=== PATIENT | female | born 1930 | race Asian ===

== ENCOUNTER 2021-04-02 10:02 | Inpatient (IN) | payer MEDICARE, OTHER ==
[~2021-04-02] VITALS: Ht 152.4 cm; Wt 49.9 kg
[2021-04-02] MEDS ORDERED: ESOM40CA PO (10:53)
[2021-04-02] MEDS ORDERED: IRBE150T28 PO (10:53)
[2021-04-02] MEDS ORDERED: MONT10TA22 PO (10:53)
[2021-04-02] MEDS ORDERED: IBUP-1953 PO (10:53)
[2021-04-02] MEDS ORDERED: MECL-159 PO (10:53)
[2021-04-02] MEDS ORDERED: FOLI0.4T6 PO (10:53)
[2021-04-02] MEDS ORDERED: LABE200T5 PO (10:53)
[2021-04-02] MEDS ORDERED: TRAM50TA2 PO (10:53)
[2021-04-02] MEDS ORDERED: NITR0.4T48 SL (10:53)
[2021-04-02] MEDS ORDERED: GABA-532 PO (10:53)
[2021-04-02] MEDS ORDERED: AMLO-213 PO (10:53)
[2021-04-02] MEDS ORDERED: LORA2TAB95 PO (10:54)
[2021-04-02] MEDS ORDERED: MAG HYDROX/AL HYDROX/SIMETH 30 ML UDC PO PRN (11:00)
[2021-04-02] MEDS ORDERED: ZOLPIDEM TARTRATE 5 MG TABLET PO PRN (11:00)
[2021-04-02] MEDS ORDERED: BLOOD SUGAR DIAGNOSTIC 1 EACH STRIP IN ONE (11:00)
[2021-04-02] MEDS ORDERED: ACETAMINOPHEN 325 MG TABLET PO PRN (11:00)
[2021-04-02] MEDS ORDERED: MAGNESIUM HYDROXIDE 30 ML UDC PO PRN (11:00)
--- NOTE | 2021-04-02 11:09 | NUR ---
RN-CO: PT REQUESTED FOR SNACKS AND CURRENTLY EATING. BLOOD SUGAR IN N/A.
[2021-04-02] MEDS ORDERED: Z GUARD REMEDY 4 OZ OINT TP PRN (12:30)
--- NOTE | 2021-04-02 12:30 | NUR ---
DR WEAVER CALLED AND INFORMED OF PATIENT'S HGB 7.6, HCT 22.4, BUN 56, CREATININE 2.8. THESE LAB RESULTS CAME WITH PATIENT FROM [facility]. DR WEAVER ORDERED A CBC AND CMP STAT. AWAITING RESULTS. PT RESTING WELL CALM AND COOPERATIVE. ATE LUNCH. NO ACUTE DISTRESS NOTED AT THIS TIME. WILL CONTINUE TO MONITOR.
--- NOTE | 2021-04-02 12:45 | NUR ---
FARZAD Initial Discharge Note: Patient currently resides at home located at [address] [place] [address]; ([phone]). Patient will return back home upon dc. Patient's daughter Janny ([phone]) is involved in patient's care. FARZAD will work with the MD, treatment team, and family to help coordinate appropriate discharge.
--- NOTE | 2021-04-02 12:45 | NUR ---
SW Admit Source: Patient currently resides at home located at [address] [place] [address]; ([phone]). Patient will return back home upon dc. Patient's daughter Janny ([phone]) is involved in patient's care. Patient was placed on a 5150 hold for danger to self due to overdosing on 10 tablets of Ativan.
--- NOTE | 2021-04-02 12:46 | NUR ---
FARZAD Family Contact: SW spoke with patient's daughter Janny ([phone]) and discussed treatment and discharge plan. Daughter expressed that patient did not take the tablets to end her life. She expressed she has been having back pain since January 2021 and has a fracture. She reported she took the medications to stop the pain. She stated that she has been having severe pain (back and right foot). Daughter shared that pt receives blood transfusion and last she received was in Mar 14, 2021 and has an appointment on 04/03/2021 for another transfusion.
[2021-04-02 12:55] LABS: BASOPHILS % (AUTO) 0.5 % (0.0-2.0); HEMATOCRIT 22 % (39-51); HEMOGLOBIN 7.3 g/dL (13.5-17.5); LYMPHOCYTES # (AUTO) 0.8 K/uL (0.8-4.8); LYMPHOCYTES % (AUTO) 13.9 % (20.0-44.0); MEAN CORPUSCULAR HGB CONC 34 g/dl (31.0-36.0); MEAN CORPUSCULAR VOLUME 90 fL (80-96); MONOCYTES # (AUTO) 0.5 K/uL (0.1-1.30); MONOCYTES % (AUTO) 9.2 % (2.0-12.0); NEUTROPHILS # (AUTO) 4.2 K/uL (1.8-8.9); NEUTROPHILS % (AUTO) 74.4 % (43.0-81.0); PLATELET COUNT (AUTO) 140 K/uL (150-450); WHITE BLOOD COUNT (AUTO) 5.6 K/uL (4.3-11.0)
--- NOTE | 2021-04-02 13:23 | NUR ---
RECEIVED PATIENT FROM [facility]. ARRIVAL TIME 1045 VIA AMBULANCE/GURNEY. PATIENT ADMITTED ON A 5150 HOLD FOR DANGER TO SELF, SUICIDE ATTEMPT. PER HOLD: PATIENT ATTEMPTED TO END HER LIFE BY OVERDOSING ON 10 TABLETS OF ATIVAN. UPON ARRIVAL TO THE UNIT, PATIENT IS ALERT AND ORIENTED X 3,CALM AND COOPERATIVE, MOSTLY MANDARIN SPEAKING, HOWEVER FOLLOWS COMMANDS IN UZBEK. PATIENT DENIES SUICIDAL AND HOMICIDAL IDEATION AT THIS TIME. PATIENT PATIENT'S RESPIRATIONS APPEARED EVEN AND UNLABORED WITH NO SOB NOTED. SKIN ASSESSMENT COMPLETED, SHOWING DISCOLORATION ON LEFT ARM, REDNESS ON SACRAL AREA AND DISCOLORATION ON RIGHT HIP, PHOTOS WERE TAKEN OF. VITAL SIGNS 137/58, 97.9, 16, 79, 96% ON R/A. BLOOD SUGAR 147. FACE OF PHOTO WELL SKIN ASSESSMENT. MEDICAL HX OF ANEMIA, HTN, ULCER, HEART SURGERY 15 YEARS AGO, HISTERECTOMY 1981 COVID VACCINE FIRST AND SECOND SHOT GIVEN, FLU VACCINE GIVEN. MSRA SWAB DONE. PATIENT EDUCATED FIBER PRODUCT CUTTING MACHINE OPERATOR LIGHT. SIDE RAILS UP X2 FOR SAFETY. BED LOCKED, LOW, WILL CONTINUE TO MONITOR Q15 MINUTES FOR SAFETY. ALL BELONGINGS STORED IN PT'S LOCKER AND DOCUMENTED.
[2021-04-02 13:28] LABS: ALANINE AMINOTRANSFERASE 22 U/L (12-78); ALKALINE PHOSPHATASE 73 U/L (46-116); ASPARTATE AMINOTRANSFERASE 17 U/L (15-37); BILIRUBIN,TOTAL 0.3 mg/dL (0.2-1.0); CALCIUM, SERUM 8.6 mg/dL (8.5-10.1); CARBON DIOXIDE 22 mmol/L (21-32); CHLORIDE 110 mmol/L (98-107); CREATININE 2.9 mg/dL (0.6-1.3); GLUCOSE 141 mg/dL (74-106); POTASSIUM 4.6 mmol/L (3.5-5.1); SODIUM SERUM 141 mmol/L (136-145); TOTAL PROTEIN, SERUM 6.2 g/dL (6.4-8.2); UREA NITROGEN, BLOOD 61 mg/dL (7-18)
--- NOTE | 2021-04-02 14:05 | NUR ---
RN-CO: LATEST LAB RESULTS WERE DISCUSSED TO DR KJ STONE AND MADE HIM AWARE THAT PT IS SCHEDULED FOR BT TOMORROW ACCORDING TO HER DAUGHTERS. DR TAVERAS MADE AWARE WELL.
--- NOTE | 2021-04-02 14:23 | NUR ---
RN-CO: PATIENT'S RIGHTS WAS DISCUSSED TO PT AND DAUGHTERS.( CASHIERS SUPERVISOR)S
--- NOTE | 2021-04-02 15:43 | NUR ---
PT DISCHARGED TO MED SURG. ROOM # [address] WEAVER AND DR TAVERAS. HOLD WILL CONTINUE. PT'S LABS SHOW HGB 7.3, HCT 22, BUN 61, CREATININE 2.9. REASON FOR TRANSFER IS DUE TO PT NEEDS A BLOOD TRANSFUSION AND FURTHER EVALUATION AND MONITORING. PT ALERT AND ORIENTED X3. CALM AND COOPERATIVE. NO ACUTE DISTRESS NOTED. PT DENIES SI/HI AT THIS TIME. VALUABLES, BELONGINGS IN SAFE AND PATIENT'S OWN MEDICATION RECEIPT TAG IN PHARMACY GIVEN TO NAHUM GOMEZ ALONG WITH REPORT. FAMILY IS AWARE. DR TAVERAS ORDERED TO CONTINUE HOLD AND DISCHARGE PATIENT TO MED SURG UNIT.
--- NOTE | 2021-04-02 15:53 | NUR ---
SW Transfer Note: Patient will transfer to medical floor due to chronic anemia. Dr. Barber will continue the hold. Patient will return back to home [address] [place] [address]; ([phone]). Patient has a caregiver at home (77 hrs provided). Patient lives with daughter Phyllis ([phone]) who takes care of pt. Patient's other daughter Janny ([phone]) involved in the care and speaks Cypriot.
[2021-04-02] MEDS ORDERED: Z GUARD REMEDY 4 OZ OINT TP SCH (21:00)
== END 2021-04-02 15:33 | disposition short-term general hospital (02) | DRG 812 ==
LOC: EDSEX → GPS 10:18
PROVIDERS: ADMIT Psychiatry & Neurology Psychiatry; ATTEND Internal Medicine
DX: D64.9 Anemia, unspecified (principal); F32.2 Major depressive disorder, single episode, severe without psychotic features
CPT/HCPCS: 36415; 80053-TC; 85025-TC; 87081-TC

== ENCOUNTER 2021-04-02 15:53 | Inpatient (IN) | payer MEDICARE, OTHER ==
[~2021-04-02] VITALS: Ht 152.4 cm; Wt 49.9 kg
[~2021-04-02 15:53] MED LIST: AMLO-213 PO; ESOM40CA PO; FOLI0.4T6 PO; GABA-532 PO; IBUP-1953 PO; IRBE150T28 PO; LABE200T5 PO; LORA2TAB95 PO; MECL-159 PO; MONT10TA22 PO; NITR0.4T48 SL; TRAM50TA2 PO
[2021-04-02 16:30] VITALS: BP 143/66
--- NOTE | 2021-04-02 16:30 | NUR ---
RN MS NOTES RECEIVED PT FROM [facility] STAFF VIA WHEELCHAIR, ASSISTED TO BED, MADE COMFORTABLE, PT IS AWAKE, ALERT, NO SIGN OF PAIN, NOT IN DISTRESS, ON ROOM AIR, ROOM SET UP ORIENTATION PROVIDED TO PT, VITAL SIGNS TAKEN AND RECORDED, DR. STONE NOTIFIED, AWAITING ADMITTING ORDERS.
[2021-04-02] MEDS ORDERED: IBUPROFEN 400 MG TABLET PO PRN (17:00)
[2021-04-02] MEDS ORDERED: MORPHINE SULFATE INJ 2 MG/ML DISP.SYRIN IV PRN (17:00)
[2021-04-02] MEDS ORDERED: ONDANSETRON HCL/PF 4 MG/2 ML VIAL IVP PRN (17:00)
[2021-04-02] MEDS ORDERED: NITROGLYCERIN 0.4 MG/TAB BOTTLE SL PRN (17:00)
[2021-04-02] MEDS ORDERED: MECLIZINE HCL 25 MG TABLET PO PRN (17:00)
[2021-04-02] MEDS ORDERED: ACETAMINOPHEN 325 MG TABLET PO PRN (17:00)
[2021-04-02] MEDS ORDERED: GABAPENTIN 100 MG CAPSULE PO PRN (17:00)
[2021-04-02] MEDS: LABETALOL HCL (100MG) 100 MG TABLET PO SCH (17:14)
[2021-04-02] MEDS: IV NS 0.9% 1,000 ML IV PRN (18:01)
--- NOTE | 2021-04-02 19:00 | NUR ---
RN MS NOTES PT IN BED, AWAKE, ALERT, ABLE TO MAKE NEEDS KNOWN, ABLE TO AMBULATE TO THE BATHROOM WITH A WALKER, ORDERS RECEIVED FROM DR. WEAVER, CONSENT FOR BLOOD TRANSFUSION SIGNED BY PT WITH DAUGHTER HUNTER ON THE PHONE TO EXPLAIN TO HER, IV FLUIDS INFUSING WELL, CALL LIGHT WITHIN REACH, SITTER AT BEDSIDE, ALL NEEDS ATTENDED.
--- NOTE | 2021-04-02 19:45 | NUR ---
RN OPENING NOTES RECEIVED PATIENT IN BED AWAKE, ALERT, ORIENTED X2-3, VERBALLY RESPONSIVE. ON ROOM AIR AND PT TOLERATED WELL. NO SOB NOTED. BREATHING EVEN AND UNLABORED. IV ACCES LFA#20G, INTACT AND PATENT. RUNNING NS@75CC/HR. NO S/S OF INFILTRATIONS. NO C/O PAIN OR DISCOMFORT. NO ACUTE DISTRESS. AMBULATORY WITH WALKER. SITTER AT BEDSIDE. ALL SAFETY PRECAUTIONS IN PLACE AT ALL TIMES. BED IN LOWEST POSITION AND LOCKED, HOB ELEVATED, SIDE RAILS UP X2, PLACE CALL LIGHT AND TABLE WITHIN REACH. WILL CONTINUE TO MONITOR
[2021-04-02 20:00] VITALS: BP 120/55
[2021-04-03 06:18] LABS: BASOPHILS % (AUTO) 0.5 % (0.0-2.0); EOSINOPHILS % (AUTO) 2.6 % (0.0-6.0); HEMATOCRIT 21 % (33-45); HEMOGLOBIN 7.3 g/dL (11.5-14.8); LYMPHOCYTES # (AUTO) 1.1 K/uL (0.8-4.8); LYMPHOCYTES % (AUTO) 16.6 % (20.0-44.0); MEAN CORPUSCULAR HGB CONC 34 g/dl (31.0-36.0); MEAN CORPUSCULAR VOLUME 90 fL (82-100); MONOCYTES # (AUTO) 0.6 K/uL (0.1-1.30); MONOCYTES % (AUTO) 9.9 % (2.0-12.0); NEUTROPHILS # (AUTO) 4.5 K/uL (1.8-8.9); NEUTROPHILS % (AUTO) 70.4 % (43.0-81.0); PLATELET COUNT (AUTO) 152 K/uL (150-450); RED BLOOD CELL COUNT(AUTO) 2.37 MIL/uL (4.0-5.2); WHITE BLOOD COUNT (AUTO) 6.4 K/uL (4.3-11.0)
--- NOTE | 2021-04-03 06:35 | NUR ---
RN CLOSING NOTES PATIENT IN BED AWAKE, ALERT, ORIENTED X2-3, VERBALLY RESPONSIVE. ON ROOM AIR, O2 SAT 97% AND PT TOLERATED WELL. NO SOB NOTED. BREATHING EVEN AND UNLABORED. IV ACCES LFA#20G, INTACT AND PATENT. RUNNING NS@75CC/HR. NO S/S OF INFILTRATIONS. NO C/O PAIN OR DISCOMFORT. NO ACUTE DISTRESS. AMBULATORY WITH WALKER. SITTER AT BEDSIDE. NO UNUSAL BEHAVIOR NOTED. ALL SAFETY PRECAUTIONS IN PLACE AT ALL TIMES. BED IN LOWEST POSITION AND LOCKED, HOB ELEVATED, SIDE RAILS UP X2, PLACE CALL LIGHT AND TABLE WITHIN REACH. WILL ENDORSE TO MORNING SHIFT NURSE.
[2021-04-03 07:15] LABS: ALANINE AMINOTRANSFERASE 22 U/L (12-78); ALBUMIN 2.9 g/dL (3.4-5.0); ALKALINE PHOSPHATASE 76 U/L (46-116); ASPARTATE AMINOTRANSFERASE 17 U/L (15-37); BILIRUBIN,TOTAL 0.3 mg/dL (0.2-1.0); CALCIUM, SERUM 8.6 mg/dL (8.5-10.1); CARBON DIOXIDE 17 mmol/L (21-32); CHLORIDE 112 mmol/L (98-107); CREATININE 2.8 mg/dL (0.6-1.3); GLUCOSE 109 mg/dL (74-106); MAGNESIUM 2.3 mg/dL (1.8-2.4); PHOSPHORUS 4.8 mg/dL (2.5-4.9); POTASSIUM 4.1 mmol/L (3.5-5.1); SODIUM SERUM 142 mmol/L (136-145); TOTAL PROTEIN, SERUM 5.9 g/dL (6.4-8.2); UREA NITROGEN, BLOOD 56 mg/dL (7-18)
[2021-04-03] MEDS ORDERED: PANTOPRAZOLE 40 MG TABLET.DR PO SCH (07:30)
--- NOTE | 2021-04-03 08:15 | NUR ---
MS RN OPENING NOTE Patient in bed, awake. A/O x 2-3. On room air, breathing evenly and unlabored. No SOB or s/s of distress noted. IV access on LFA #20G infusing NS at 75 cc/hr. Safety precautions in place: bed in low, locked position; siderails up x 2; call light within reach. Will continue to monitor.
--- NOTE | 2021-04-03 08:20 | NUR ---
SW Transfer Note: Patient will transfer to medical floor due to chronic anemia. Dr. Barber will continue the hold. Patient will return back to home [address] [place] [address]; ([phone]). Patient has a caregiver at home (77 hrs provided). Patient lives with daughter Phyllis ([phone]) who takes care of pt. Patient's other daughter Janny ([phone]) involved in the care and speaks Kuwaiti.
[2021-04-03] MEDS ORDERED: AMLODIPINE BESYLATE 10 MG TABLET PO SCH (09:00)
[2021-04-03] MEDS ORDERED: MONTELUKAST SODIUM (10MG) 10 MG TABLET PO SCH (09:00)
[2021-04-03] MEDS ORDERED: FOLIC ACID 1 MG TABLET PO SCH (09:00)
[2021-04-03] MEDS ORDERED: LOSARTAN POTASSIUM 50 MG TABLET PO SCH (09:00)
[2021-04-03] MEDS ORDERED: DULOXETINE HCL 30 MG CAPSULE.DR PO SCH (09:30)
[2021-04-03] MEDS: LABETALOL HCL (100MG) 100 MG TABLET PO SCH ×2 (09:40→18:31)
[2021-04-03] MEDS: GABAPENTIN 100 MG CAPSULE PO SCH ×3 (09:42→18:31)
[2021-04-03] MEDS: IV NS 0.9% 1,000 ML IV PRN (11:38)
[2021-04-03] MEDS: ENSURE ENLIVE 237 ML LIQUID (VANILLA) PO SCH ×2 (12:03→18:30)
[2021-04-03 14:30] VITALS: BP 146/61
--- NOTE | 2021-04-03 14:46 | NUR ---
RN NOTE Started blood transfusion at 1446. Verified by 2 RNs. VS as follows: BP 146/61; HR 76; RR 18; Temp 98.5; SpO2 99%. No signs of hemolytic reactions was noted. will continue to monitor.
--- NOTE | 2021-04-03 14:53 | NUR ---
RN NOTE Dr. Oswald Jimenez ordered to transfuse 1 unit of PRBC. Blood transfusion consent signed by patient. Addendum: 04/03/21 at 1459 by RIGO SIDDIQUI RN CORRECTION: Time: 1400
[2021-04-03 15:01] VITALS: BP 134/58
--- NOTE | 2021-04-03 15:01 | NUR ---
RN NOTE Patient is undergoing blood transfusion of 1 unit PRBC at this time. No transfusion reactions noted. Will continue to monitor.
[2021-04-03 15:31] VITALS: BP 119/64
[2021-04-03 16:31] VITALS: BP 129/56
[2021-04-03 18:01] VITALS: BP 130/54
--- NOTE | 2021-04-03 18:01 | NUR ---
RN NOTE Blood transfusion ended, patient tolerated well. VS as follows: Temp 98.8; BP 130/54; HR 79; RR 18.
[2021-04-03 18:31] VITALS: BP 130/54
[2021-04-03 19:59] LABS: BASOPHILS % (AUTO) 0.5 % (0.0-2.0); HEMATOCRIT 27 % (33-45); LYMPHOCYTES # (AUTO) 1.4 K/uL (0.8-4.8); LYMPHOCYTES % (AUTO) 18.7 % (20.0-44.0); MEAN CORPUSCULAR HGB CONC 34 g/dl (31.0-36.0); MEAN CORPUSCULAR VOLUME 92 fL (82-100); MONOCYTES # (AUTO) 0.8 K/uL (0.1-1.30); MONOCYTES % (AUTO) 10.8 % (2.0-12.0); NEUTROPHILS # (AUTO) 5.2 K/uL (1.8-8.9); PLATELET COUNT (AUTO) 146 K/uL (150-450); RED BLOOD CELL COUNT(AUTO) 2.91 MIL/uL (4.0-5.2); WHITE BLOOD COUNT (AUTO) 7.7 K/uL (4.3-11.0)
--- NOTE | 2021-04-03 20:01 | NUR ---
DISCHARGE NOTE Received order to discharge patient after blood transfusion. Patient is A/O x 2-3, stable on room air. Report given to Norberto of [facility] for continuity of care. IV access removed. Patient transferred to [facility] via wheelchair. Exitcare folder and belongings given to JASON Thornton of [facility].
[2021-04-03 21:24] LABS: THYROID STIMULATING HORMONE 1.441 uIU/mL (0.358-3.74)
[2021-04-05 09:07] LABS: IMMUNOGLOBULIN A, SERUM 150 mg/dL (64-422); IMMUNOGLOBULIN G, SERUM 724 mg/dL (586-1602); IMMUNOGLOBULIN M, SERUM 45 mg/dL (26-217)
[2021-04-07 10:07] LABS: *SPE A/G RATIO 1.3 (0.7-1.7); *SPE ALPHA-1-GLOBULIN 0.3 g/dL (0.0-0.4); *SPE ALPHA-2-GLOBULIN 0.9 g/dL (0.4-1.0); *SPE BETA GLOBULIN 0.7 g/dL (0.7-1.3); *SPE M-SPIKE Not Observed g/dL (Not Observed)
== END 2021-04-03 19:50 | DRG 811 ==
LOC: EDSEX 15:53 → TELE 15:53 → MED 16:57
PROVIDERS: ADMIT Internal Medicine; ATTEND Internal Medicine
PROC: 30233N1 Transfusion of Nonautologous Red Blood Cells into Peripheral Vein, Percutaneous Approach (ICD-10-PCS; principal; 2021-04-03)
DX: D64.9 Anemia, unspecified (principal); N17.0 Acute kidney failure with tubular necrosis; F32.2 Major depressive disorder, single episode, severe without psychotic features; I12.9 Hypertensive chronic kidney disease with stage 1 through stage 4 chronic kidney disease, or unspecified chronic kidney disease; N18.9 Chronic kidney disease, unspecified; T42.4X2D Poisoning by benzodiazepines, intentional self-harm, subsequent encounter; M84.48XD Pathological fracture, other site, subsequent encounter for fracture with routine healing
CPT/HCPCS: 36415; 80053-TC; 82728-TC; 82784; 83540-TC; 83605-TC; 83735-TC; 84100-TC; 84155; 84165; 84443-TC; 85025-TC; 86334; 86850-TC; 87081-TC; G0378; J2270; J7030; J7040; J7050; P9016

== ENCOUNTER 2021-04-03 20:29 | Inpatient (IN) | payer MEDICARE, OTHER ==
[~2021-04-03] VITALS: Ht 152.4 cm; Wt 49.9 kg
[~2021-04-03 20:29] MED LIST changes: -LORA2TAB95 PO
--- NOTE | 2021-04-03 20:45 | NUR ---
[facility] TRANSCRIPT CLERK NOTES RECEIVED REPORT FROM JASON MONTANEZ [facility]ST. PATIENT ADMITTED ON A 5150 FOR DANGER TO SELF. PER HOLD, PATIENT ATTEMPTED TO END HER LIFE BY OVERDOSING ON 10 TABLETS OF ATIVAN. UPON FACE TO FACE EVALUATION, PATIENT IS A/OX2-3, MOSTLY MANDARIN SPEAKING. HOWEVER, FOLLOWS COMMANDS IN LITHUANIAN. APPEARS DEPRESSED, EASILY GETS IRRITABLE, GUARDED. VERBALIZATION OF FEELINGS ENCOURAGED. PATIENT REFUSED TO SIGN ALL ADMISSION PAPERWORK. SKIN ASSESSMENT DONE. BELONGINGS WERE INVENTORIED AND CHECKED FOR CONTRABAND. PATIENT IS UNDER THE PSYCHIATRIC CARE OF DR. TAVERAS AND MEDICAL CARE OF [facility]LE[facility] MORENO. BED IN LOW LOCKED POSITION. SAFETY PRECAUTIONS MAINTAINED. WILL CONTINUE TO MONITOR Q15 MINS FOR MOOD, SAFETY AND BEHAVIOR.
[2021-04-03 21:00] VITALS: BP 129/60
[2021-04-03] MEDS ORDERED: MAGNESIUM HYDROXIDE 30 ML UDC PO PRN (22:00)
[2021-04-03] MEDS ORDERED: LORAZEPAM 0.5 MG TABLET PO PRN (22:00)
[2021-04-03] MEDS ORDERED: MAG HYDROX/AL HYDROX/SIMETH 30 ML UDC PO PRN (22:00)
[2021-04-03] MEDS ORDERED: BLOOD SUGAR DIAGNOSTIC 1 EACH STRIP IN ONE (22:00)
[2021-04-03] MEDS: ZOLPIDEM TARTRATE 5 MG TABLET PO PRN (23:21)
--- NOTE | 2021-04-03 23:21 | NUR ---
[facility] RN NOTES: INSOMNIA PATIENT C/O INABILITY TO SLEEP. AMBIEN 5MG PO GIVEN PRN ORDER. WILL CONTINUE TO MONITOR.
[2021-04-03] MEDS ORDERED: NITROGLYCERIN 0.4 MG/TAB BOTTLE SL PRN (23:30)
[2021-04-03] MEDS ORDERED: MECLIZINE HCL 25 MG TABLET PO PRN (23:30)
[2021-04-03] MEDS ORDERED: GABAPENTIN 100 MG CAPSULE PO PRN (23:30)
--- NOTE | 2021-04-04 06:54 | NUR ---
[facility] RN NOTES PATIENT REFUSED AM LABS. WILL ENDORSE TO MORNING SHIFT NURSE FOR CONTINUITY OF CARE.
[2021-04-04 08:00] VITALS: BP 147/64
[2021-04-04] MEDS: FOLIC ACID 1 MG TABLET PO SCH (08:18)
--- NOTE | 2021-04-04 08:18 | NUR ---
Geriatric Psychosocial Attestation: Hien Berry DATA MANAGEMENT ASSOCIATE, ACSW attest to the accuracy of the psychosocial done on April 02, 2021. On the admission for December 31, 2021 the patient was admitted to [facility], she lives with her daughter Phyllis ([phone]) and located at [address] [place] [address]; ([phone]). Patients other daughter Janny ([phone]) speaks Cypriot and is involved in patients care. Daughter Janny reported that pt has a caregiver at home (77 hrs every month). During admission of April 02, 2021, pt appeared to be with low mood and depressed due to her medical conditions. Pt had denied suicidal ideation or homicidal ideation. Pt had denied visual/auditory hallucinations. She expressed back pain and body pain. Daughter Janny ([phone]) expressed that pt receives blood transfusion twice a month and her transfusion was due on April 03, 2021. Pt then was transferred to the medical floor on April 02, 2021 due to Chronic Anemia on a hold for 5150 (Dr. Barber continued the hold). Patient was readmitted to [facility] on April 03, 2021, she was transferred back from medical floor to [facility]. During this writers evaluation, pt continues to present with low mood and appears depressed. Pt denies suicidal or homicidal ideation. Upon discharge, pt will return back home at [address] [place], [place] [address]; ([phone]). Family will be notified of pt being back to [facility]. Addendum: 04/04/21 at 1015 by FARZAD LANZA Disregard attestation
[2021-04-04] MEDS: AMLODIPINE BESYLATE 10 MG TABLET PO SCH (08:19)
[2021-04-04] MEDS: PANTOPRAZOLE 40 MG TABLET.DR PO SCH (08:19)
[2021-04-04] MEDS: MONTELUKAST SODIUM (10MG) 10 MG TABLET PO SCH (08:19)
[2021-04-04] MEDS: ENSURE ENLIVE 237 ML LIQUID (VANILLA) PO SCH ×3 (08:35→17:09)
[2021-04-04] MEDS ORDERED: LOSARTAN POTASSIUM 50 MG TABLET PO SCH (09:00)
--- NOTE | 2021-04-04 10:15 | NUR ---
Psychosocial Attestation: I, Hien Robbinswillem TEMPER MILL ROLLER, ACSW attest to the contents of my psychosocial done on April 02, 2021. Patient was brought to [facility] on a 5150 hold for danger to herself on April 02, 2021 due to pt attempting to end her life by overdosing on 10 tablets of Ativan. Current situation today, April 04, 2021, is that patient was transferred back to [facility] on April 03, 2021. Patient went upstairs on the medical floor due to a need for blood transfusion. Patients presentation is depressed mood. She is alert and oriented x3. SW attempted to use [employer] #[id number] and pt was blankly staring and not responding. Patient understands somewhat Croatian. She denied suicidal or homicidal ideation. Pt denied visual/auditory hallucinations. SW spoke with pts daughter Janny ([phone]) and discussed treatment/discharge plan. Daughter shared that pt has been experiencing back pain due to a fracture. She expressed that pt has a caregiver at home (77 hrs every month). Patients discharge plan remains to return back home with daughter Phyllis ([phone]). Patient lives at [address] [place] [address]; ([phone]). Daughter Janny ([phone]) is also involved in patients care.
[2021-04-04] MEDS: DULOXETINE HCL 30 MG CAPSULE.DR PO SCH (10:51)
[2021-04-04 10:59] LABS: ALANINE AMINOTRANSFERASE 20 U/L (12-78); ALBUMIN 2.8 g/dL (3.4-5.0); ALKALINE PHOSPHATASE 68 U/L (46-116); ASPARTATE AMINOTRANSFERASE 16 U/L (15-37); BILIRUBIN,TOTAL 0.4 mg/dL (0.2-1.0); CALCIUM, SERUM 8.5 mg/dL (8.5-10.1); CARBON DIOXIDE 19 mmol/L (21-32); CHLORIDE 107 mmol/L (98-107); CREATININE 2.8 mg/dL (0.6-1.3); GLUCOSE 196 mg/dL (74-106); POTASSIUM 4.4 mmol/L (3.5-5.1); SODIUM SERUM 135 mmol/L (136-145); TOTAL PROTEIN, SERUM 5.7 g/dL (6.4-8.2); UREA NITROGEN, BLOOD 61 mg/dL (7-18)
--- NOTE | 2021-04-04 11:15 | NUR ---
FARZAD Family Contact: FARZAD spoke with patient's daughter Janny ([phone]) and notified that pt is back in [facility]. She was aware of this. SW discussed treatment plan and discharge plan. Pt will return back home upon dc.
[2021-04-04 11:31] LABS: CHOLESTEROL 102 mg/dL (<200); HDL CHOLESTEROL 36 mg/dL (40-60); LDL 47 mg/dL (0-99); TRIGLYCERIDES 76 mg/dL (30-150)
[2021-04-04] MEDS: GABAPENTIN 100 MG CAPSULE PO SCH ×2 (12:03→16:50)
[2021-04-04 16:00] VITALS: BP 133/72
[2021-04-04 20:10] VITALS: BP 132/56
--- NOTE | 2021-04-04 20:31 | NUR ---
[facility] RN NOTE: LAB URINE SAMPLE COLLECTED. CHARGE NURSE AWARE; LAB NOTIFIED
--- NOTE | 2021-04-04 21:02 | NUR ---
[facility] RN NOTE: LAB LAB PICKED UP URINE SPECIMEN, CHARGE NURSE AWARE; WILL AWAIT LAB RESULTS
[2021-04-04 21:35] LABS: BILIRUBIN,URINE NEGATIVE (NEGATIVE); COLOR,URINE YELLOW (YELLOW); LEUKOCYTE ESTERASE ,URINE NEGATIVE (NEGATIVE); NITRITE, URINE NEGATIVE (NEGATIVE); PROTEIN,URINE 100 mg/dl (NEGATIVE); UGLUCOSE 100 MG/DL mg/dL (NEGATIVE); UROBILINOGEN,URINE 0.2 EU/dL (0.2)
[2021-04-04 21:40] LABS: BACTERIA,URINE None seen /HPF (None Seen); SQUAMOUS EPITHELIAL CELL,UR 0-2 /HPF (None Seen); WBC,URINE 0-2 /HPF (0-3)
[2021-04-04 21:45] LABS: CREATININE, URINE 35.6 MG/DL (30.0-125.0); URINE TOTAL PROTEIN 94.7 mg/dL (0-11.9)
[2021-04-04 22:02] LABS: EOSINOPHIL,URINE RARE
[2021-04-05 06:52] LABS: BASOPHILS % (AUTO) 0.4 % (0.0-2.0); EOSINOPHILS % (AUTO) 4.2 % (0.0-6.0); HEMATOCRIT 24 % (33-45); HEMOGLOBIN 8.1 g/dL (11.5-14.8); LYMPHOCYTES # (AUTO) 0.9 K/uL (0.8-4.8); LYMPHOCYTES % (AUTO) 15.1 % (20.0-44.0); MEAN CORPUSCULAR HGB CONC 34 g/dl (31.0-36.0); MEAN CORPUSCULAR VOLUME 90 fL (82-100); MONOCYTES # (AUTO) 0.6 K/uL (0.1-1.30); NEUTROPHILS # (AUTO) 4.3 K/uL (1.8-8.9); NEUTROPHILS % (AUTO) 70.3 % (43.0-81.0); PLATELET COUNT (AUTO) 119 K/uL (150-450); RED BLOOD CELL COUNT(AUTO) 2.63 MIL/uL (4.0-5.2); WHITE BLOOD COUNT (AUTO) 6.1 K/uL (4.3-11.0)
[2021-04-05 07:24] LABS: MAGNESIUM 2.2 mg/dL (1.8-2.4); PHOSPHORUS 4.9 mg/dL (2.5-4.9)
[2021-04-05 08:00] VITALS: BP 144/64
[2021-04-05] MEDS: AMLODIPINE BESYLATE 10 MG TABLET PO SCH (08:07)
[2021-04-05] MEDS: FOLIC ACID 1 MG TABLET PO SCH (08:07)
[2021-04-05] MEDS: DULOXETINE HCL 30 MG CAPSULE.DR PO SCH (08:07)
[2021-04-05] MEDS: MONTELUKAST SODIUM (10MG) 10 MG TABLET PO SCH (08:07)
[2021-04-05] MEDS: ENSURE ENLIVE 237 ML LIQUID (VANILLA) PO SCH ×3 (08:08→17:03)
[2021-04-05] MEDS: GABAPENTIN 100 MG CAPSULE PO SCH ×3 (08:08→16:12)
[2021-04-05] MEDS: PANTOPRAZOLE 40 MG TABLET.DR PO SCH (08:08)
[2021-04-05] MEDS ORDERED: EPOETIN ALFA-EPBX 10,000 UNIT/ML VIAL SQ ONE (15:00)
[2021-04-05 16:00] VITALS: BP 129/67
[2021-04-05] MEDS: ACETAMINOPHEN 325 MG TABLET PO PRN (20:08)
--- NOTE | 2021-04-05 20:11 | NUR ---
[facility] RN NOTES: PT SHOWING SIGNS OF FEVER WITH TEMPERATURE RECORDED AT 99.4 DEGREES FAHRENHEIT. TEMPERATURE TAKEN 3 TIMES WITH THE AVERAGE TEMPERATURE RECORDED AT 99.4. PT GIVEN TYLENOL FOR FEVER. WILL RE-EVALUATE EFFECTIVENESS OF MEDICATION GIVEN. WILL CONTINUE TO MONITOR PT FOR ANY CHANGES IN CURRENT CONDITION THROUGHOUT MY SHIFT.
--- NOTE | 2021-04-05 23:37 | NUR ---
[facility]PS RN NOTE PATIENT'S BODY TEMPERATURE IS 98.5 AT THIS TIME.
[2021-04-05] MEDS: ZOLPIDEM TARTRATE 5 MG TABLET PO PRN (23:40)
--- NOTE | 2021-04-06 00:50 | NUR ---
[facility] RN NOTES: PT C/O INSOMNIA, REQUESTING FOR SLEEP MEDICATION. PT GIVEN AMBIEN PER DOCTOR'S ORDER. WILL RE-EVALUATE THE EFFECTIVENESS OF MEDICATION GIVEN. WILL CONTINUE TO MONITOR PT.
[2021-04-06 08:00] VITALS: BP 134/59
[2021-04-06] MEDS: PANTOPRAZOLE 40 MG TABLET.DR PO SCH (08:11)
[2021-04-06] MEDS: ENSURE ENLIVE 237 ML LIQUID (VANILLA) PO SCH ×3 (08:49→16:04)
[2021-04-06] MEDS: MONTELUKAST SODIUM (10MG) 10 MG TABLET PO SCH (08:49)
[2021-04-06] MEDS: DULOXETINE HCL 30 MG CAPSULE.DR PO SCH (08:49)
[2021-04-06] MEDS: AMLODIPINE BESYLATE 10 MG TABLET PO SCH (08:49)
[2021-04-06] MEDS: FOLIC ACID 1 MG TABLET PO SCH (08:49)
[2021-04-06] MEDS: GABAPENTIN 100 MG CAPSULE PO SCH ×3 (08:50→16:04)
[2021-04-06] MEDS: IBUPROFEN 400 MG TABLET PO PRN (09:06)
[2021-04-06 16:00] VITALS: BP 130/56
[2021-04-06 20:27] VITALS: BP 131/61
[2021-04-06] MEDS: TRAMADOL HCL 50 MG TABLET PO PRN (21:53)
--- NOTE | 2021-04-06 21:53 | NUR ---
[facility] RN NOTES: INSOMNIA PATIENT C/O INABILITY TO SLEEP. AMBIEN 5MG PO GIVEN PRN ORDER. WILL CONTINUE TO MONITOR.
[2021-04-06] MEDS: ZOLPIDEM TARTRATE 5 MG TABLET PO PRN (23:09)
[2021-04-07] MEDS: PANTOPRAZOLE 40 MG TABLET.DR PO SCH (07:30)
[2021-04-07 08:00] VITALS: BP 150/65
[2021-04-07] MEDS: AMLODIPINE BESYLATE 10 MG TABLET PO SCH (08:58)
[2021-04-07] MEDS: GABAPENTIN 100 MG CAPSULE PO SCH ×3 (08:58→17:28)
[2021-04-07] MEDS: FOLIC ACID 1 MG TABLET PO SCH (08:59)
[2021-04-07] MEDS: MONTELUKAST SODIUM (10MG) 10 MG TABLET PO SCH (08:59)
[2021-04-07] MEDS: ENSURE ENLIVE 237 ML LIQUID (VANILLA) PO SCH ×3 (08:59→17:28)
[2021-04-07] MEDS: DULOXETINE HCL 30 MG CAPSULE.DR PO SCH (08:59)
[2021-04-07] MEDS: IBUPROFEN 400 MG TABLET PO PRN (09:13)
--- NOTE | 2021-04-07 09:14 | NUR ---
patient c/o generalize pain medicated with Motrin 600mg ,will continue to monitor for pain .
--- NOTE | 2021-04-07 14:38 | NUR ---
FARZAD Coordination of Care: Patient will follow up with (District Manager Major Accounts Sales) Dr. Duane Valenzuela located at [address] [place] [address]; ([phone]) on April 17 at 9:45AM who will monitor and provide pts psychotropic medications.
[2021-04-07 16:00] VITALS: BP 135/60
[2021-04-07 20:00] VITALS: BP 133/57
--- NOTE | 2021-04-07 21:42 | NUR ---
[facility] RN NOTE PATIENT IS SLEEPING COMFORTABLY AT THIS TIME. WILL CONTINUE TO MONITOR.
[2021-04-07] MEDS: ZOLPIDEM TARTRATE 5 MG TABLET PO PRN (23:26)
--- NOTE | 2021-04-07 23:28 | NUR ---
[facility] RN NOTE: INSOMNIA PATIENT IS AWAKE AND VERBALIZED INABILITY TO SLEEP. PATIENT REQUESTED SLEEPING MEDICINE. PRN AMBIEN 5 MG 1 TAB PO ADMINISTERED. WILL CONTINUE TO MONITOR.
--- NOTE | 2021-04-08 06:37 | NUR ---
[facility] RN NOTE: REFUSED AM LABS PATIENT REFUSED AM LABS THIS MORNING DESPITE OF RISKS AND BENEFITS EXPLANATIONS. NUT PROCESSING SUPERVISOR WILL RETRY AGAIN AFTER BREAKFAST.
[2021-04-08] MEDS: PANTOPRAZOLE 40 MG TABLET.DR PO SCH (07:30)
[2021-04-08 08:00] VITALS: BP 141/58
[2021-04-08] MEDS: GABAPENTIN 100 MG CAPSULE PO SCH ×3 (08:41→17:52)
[2021-04-08] MEDS: DULOXETINE HCL 30 MG CAPSULE.DR PO SCH (08:41)
[2021-04-08] MEDS: FOLIC ACID 1 MG TABLET PO SCH (08:41)
[2021-04-08] MEDS: MONTELUKAST SODIUM (10MG) 10 MG TABLET PO SCH (08:41)
[2021-04-08] MEDS: ENSURE ENLIVE 237 ML LIQUID (VANILLA) PO SCH ×3 (08:43→17:52)
[2021-04-08] MEDS: AMLODIPINE BESYLATE 10 MG TABLET PO SCH (08:43)
[2021-04-08] MEDS ORDERED: DULOXETINE HCL 30 MG CAPSULE.DR PO ONE (09:00)
[2021-04-08 10:01] LABS: BASOPHILS % (AUTO) 0.4 % (0.0-2.0); EOSINOPHILS % (AUTO) 3.5 % (0.0-6.0); HEMATOCRIT 26 % (33-45); HEMOGLOBIN 8.6 g/dL (11.5-14.8); LYMPHOCYTES # (AUTO) 0.9 K/uL (0.8-4.8); LYMPHOCYTES % (AUTO) 9.7 % (20.0-44.0); MEAN CORPUSCULAR HGB CONC 34 g/dl (31.0-36.0); MEAN CORPUSCULAR VOLUME 91 fL (82-100); MONOCYTES # (AUTO) 0.8 K/uL (0.1-1.30); MONOCYTES % (AUTO) 8.5 % (2.0-12.0); NEUTROPHILS # (AUTO) 6.9 K/uL (1.8-8.9); NEUTROPHILS % (AUTO) 77.9 % (43.0-81.0); PLATELET COUNT (AUTO) 125 K/uL (150-450); RED BLOOD CELL COUNT(AUTO) 2.81 MIL/uL (4.0-5.2); WHITE BLOOD COUNT (AUTO) 8.9 K/uL (4.3-11.0)
[2021-04-08 10:40] LABS: CALCIUM, SERUM 8.5 mg/dL (8.5-10.1); CARBON DIOXIDE 22 mmol/L (21-32); CHLORIDE 104 mmol/L (98-107); CREATININE 2.7 mg/dL (0.6-1.3); GLUCOSE 185 mg/dL (74-106); POTASSIUM 4.4 mmol/L (3.5-5.1); SODIUM SERUM 136 mmol/L (136-145)
[2021-04-08 11:11] LABS: UREA NITROGEN, BLOOD 82 mg/dL (7-18)
--- NOTE | 2021-04-08 11:53 | NUR ---
Dr. Nolan notified of BUN 82 ,WITH ORDER TO ENCOURAGE PATIENT TO DRINK MORE WATER .
[2021-04-08 16:00] VITALS: BP 141/66
--- NOTE | 2021-04-08 18:36 | NUR ---
ENCOURAGE PO FLUIDS ,PATIENT CONTINUE TO DRINK WATER ,WILL CONTINUE TO MONITOR .
[2021-04-08 20:00] VITALS: BP 140/62
[2021-04-08] MEDS: TRAMADOL HCL 50 MG TABLET PO PRN (22:06)
--- NOTE | 2021-04-08 22:08 | NUR ---
[facility] RN NOTE: PAIN PATIENT C/O LOWER BACK PAIN 07/18, PER PATIENT REQUEST PRN TRAMADOL 50 MG 1 TAB PO ADMINISTERED. WILL CONTINUE TO MONITOR.
[2021-04-08] MEDS: ZOLPIDEM TARTRATE 5 MG TABLET PO PRN (23:27)
[2021-04-09 07:33] LABS: CALCIUM, SERUM 8.3 mg/dL (8.5-10.1); CARBON DIOXIDE 24 mmol/L (21-32); CHLORIDE 103 mmol/L (98-107); CREATININE 2.4 mg/dL (0.6-1.3); GLUCOSE 145 mg/dL (74-106); POTASSIUM 4.4 mmol/L (3.5-5.1); SODIUM SERUM 135 mmol/L (136-145); UREA NITROGEN, BLOOD 72 mg/dL (7-18)
[2021-04-09 08:00] VITALS: BP 142/62
[2021-04-09] MEDS: PANTOPRAZOLE 40 MG TABLET.DR PO SCH (08:11)
[2021-04-09] MEDS: ENSURE ENLIVE 237 ML LIQUID (VANILLA) PO SCH ×3 (08:11→16:08)
[2021-04-09] MEDS: IBUPROFEN 400 MG TABLET PO PRN ×2 (08:21→16:37)
[2021-04-09] MEDS: DULOXETINE HCL 30 MG CAPSULE.DR PO SCH (08:21)
[2021-04-09] MEDS: FOLIC ACID 1 MG TABLET PO SCH (08:22)
[2021-04-09] MEDS: GABAPENTIN 100 MG CAPSULE PO SCH ×3 (08:22→16:23)
[2021-04-09] MEDS: MONTELUKAST SODIUM (10MG) 10 MG TABLET PO SCH (08:22)
[2021-04-09] MEDS: AMLODIPINE BESYLATE 10 MG TABLET PO SCH (08:22)
--- NOTE | 2021-04-09 09:09 | NUR ---
RN-CO: MOTRIN 600 MG PO GIVEN FOR BACK PAIN. 06/17.
--- NOTE | 2021-04-09 13:19 | NUR ---
RN-CO: Called DR Ward SAAVEDRA research kennel supervisor in [facility] for patient's medical record but voice mail prompted me to Medical records. [phone] to download the form and fax it to [phone]. I will try to download form today.
--- NOTE | 2021-04-09 13:36 | NUR ---
RN-CO: I PRINTED THE authorization to release of PHI. I will ask the daughter to sign and the ordering doctor to fill up the will fax it to [facility]. FAX [phone], tel number [phone]
--- NOTE | 2021-04-09 13:43 | NUR ---
RN-CO: PATIENT ATE HER LUNCH , I OFFERED WARM WATER SINCE HER BUN IS HIGH. I ENC HER TO PARTICIPATE IN GROUPS OR WATCH TV IN THE DINNING ROOM BUT SHE REFUSED. I ALSO ENCOURAGED HER TO WALK WITH ASSISTANCE IN THE HALLWAY.
[2021-04-09 16:00] VITALS: BP 143/61
--- NOTE | 2021-04-09 16:38 | NUR ---
RN-CO: IBUPROFEN 600 MG GIVEN FOR C/O BACK PAIN 05/18.
[2021-04-09 20:00] VITALS: BP 131/57
[2021-04-10 07:14] LABS: BASOPHILS % (AUTO) 0.3 % (0.0-2.0); EOSINOPHILS % (AUTO) 3.6 % (0.0-6.0); HEMATOCRIT 23 % (33-45); HEMOGLOBIN 7.6 g/dL (11.5-14.8); LYMPHOCYTES # (AUTO) 1.1 K/uL (0.8-4.8); LYMPHOCYTES % (AUTO) 14.4 % (20.0-44.0); MEAN CORPUSCULAR HGB CONC 34 g/dl (31.0-36.0); MEAN CORPUSCULAR VOLUME 90 fL (82-100); MONOCYTES # (AUTO) 0.9 K/uL (0.1-1.30); MONOCYTES % (AUTO) 12.2 % (2.0-12.0); NEUTROPHILS # (AUTO) 5.2 K/uL (1.8-8.9); NEUTROPHILS % (AUTO) 69.5 % (43.0-81.0); PLATELET COUNT (AUTO) 130 K/uL (150-450); WHITE BLOOD COUNT (AUTO) 7.4 K/uL (4.3-11.0)
[2021-04-10 08:00] VITALS: BP 139/65
[2021-04-10] MEDS: PANTOPRAZOLE 40 MG TABLET.DR PO SCH (08:09)
[2021-04-10] MEDS: FOLIC ACID 1 MG TABLET PO SCH (08:33)
[2021-04-10] MEDS: AMLODIPINE BESYLATE 10 MG TABLET PO SCH (08:33)
[2021-04-10] MEDS: MONTELUKAST SODIUM (10MG) 10 MG TABLET PO SCH (08:33)
[2021-04-10] MEDS: ENSURE ENLIVE 237 ML LIQUID (VANILLA) PO SCH ×3 (08:33→16:26)
[2021-04-10] MEDS: GABAPENTIN 100 MG CAPSULE PO SCH ×3 (08:34→16:56)
[2021-04-10] MEDS: DULOXETINE HCL 30 MG CAPSULE.DR PO SCH (08:34)
[2021-04-10] MEDS: IBUPROFEN 400 MG TABLET PO PRN (10:11)
[2021-04-10 16:00] VITALS: BP 127/67
--- NOTE | 2021-04-10 18:36 | NUR ---
RN-CO: PT SIGNED THE AUTHORIZATION TO RELEASE INFORMATION FROM [facility]. DAUGHTER WAS AT HER BED SIDE TO EXPLAIN THE FORM TO THE PT. ENDORSE TO THE NEXT SHIFT TO FAX IT TO [facility] MEDICAL RECORDS.
[2021-04-10 20:00] VITALS: BP 138/61
[2021-04-10] MEDS: ZOLPIDEM TARTRATE 5 MG TABLET PO PRN (21:31)
--- NOTE | 2021-04-10 21:31 | NUR ---
[facility] RN NOTES: INSOMNIA PATIENT C/O INABILITY TO SLEEP. AMBIEN 5MG PO GIVEN PRN ORDER. WILL CONTINUE TO MONITOR.
[2021-04-11 08:00] VITALS: BP 143/66
[2021-04-11] MEDS: GABAPENTIN 100 MG CAPSULE PO SCH ×3 (08:48→17:42)
[2021-04-11] MEDS: ENSURE ENLIVE 237 ML LIQUID (VANILLA) PO SCH ×3 (08:49→17:41)
[2021-04-11] MEDS: AMLODIPINE BESYLATE 10 MG TABLET PO SCH (08:49)
[2021-04-11] MEDS: PANTOPRAZOLE 40 MG TABLET.DR PO SCH (08:49)
[2021-04-11] MEDS: FOLIC ACID 1 MG TABLET PO SCH (08:49)
[2021-04-11] MEDS: DULOXETINE HCL 30 MG CAPSULE.DR PO SCH (08:49)
[2021-04-11] MEDS: MONTELUKAST SODIUM (10MG) 10 MG TABLET PO SCH (08:49)
[2021-04-11 16:00] VITALS: BP 134/61
[2021-04-11 20:02] VITALS: BP 142/62
[2021-04-11 20:59] VITALS: BP 142/62
[2021-04-11] MEDS: TRAMADOL HCL 50 MG TABLET PO PRN (21:38)
--- NOTE | 2021-04-11 21:40 | NUR ---
[facility] RN NOTE: PAIN PATIENT C/O LOWER BACK PAIN 07/18, PER PATIENT REQUEST PRN TRAMADOL 50 MG 1 TAB PO ADMINISTERED. WILL CONTINUE TO MONITOR.
[2021-04-11] MEDS: ZOLPIDEM TARTRATE 5 MG TABLET PO PRN (22:00)
--- NOTE | 2021-04-11 22:02 | NUR ---
[facility] RN NOTE: INSOMNIA PATIENT VERBALIZED INABILITY TO SLEEP AND REQUESTED SLEEPING MEDICINE. PRN AMBIEN 5 MG 1 TAB PO ADMINISTERED. BED ALARM IS ON. WILL CONTINUE TO MONITOR.
[2021-04-12 07:13] LABS: BASOPHILS % (AUTO) 0.3 % (0.0-2.0); EOSINOPHILS % (AUTO) 3.9 % (0.0-6.0); HEMATOCRIT 22 % (33-45); HEMOGLOBIN 7.5 g/dL (11.5-14.8); LYMPHOCYTES % (AUTO) 17.1 % (20.0-44.0); MEAN CORPUSCULAR HGB CONC 34 g/dl (31.0-36.0); MEAN CORPUSCULAR VOLUME 90 fL (82-100); MONOCYTES # (AUTO) 0.8 K/uL (0.1-1.30); MONOCYTES % (AUTO) 12.8 % (2.0-12.0); NEUTROPHILS % (AUTO) 65.9 % (43.0-81.0); PLATELET COUNT (AUTO) 147 K/uL (150-450); WHITE BLOOD COUNT (AUTO) 6.1 K/uL (4.3-11.0)
[2021-04-12 08:00] VITALS: BP 157/69
[2021-04-12] MEDS: FOLIC ACID 1 MG TABLET PO SCH (09:28)
[2021-04-12] MEDS: PANTOPRAZOLE 40 MG TABLET.DR PO SCH (09:28)
[2021-04-12] MEDS: GABAPENTIN 100 MG CAPSULE PO SCH ×3 (09:28→17:18)
[2021-04-12] MEDS: DULOXETINE HCL 30 MG CAPSULE.DR PO SCH (09:28)
[2021-04-12] MEDS: AMLODIPINE BESYLATE 10 MG TABLET PO SCH (09:29)
[2021-04-12] MEDS: ENSURE ENLIVE 237 ML LIQUID (VANILLA) PO SCH ×3 (09:29→17:18)
[2021-04-12] MEDS: MONTELUKAST SODIUM (10MG) 10 MG TABLET PO SCH (09:30)
[2021-04-12 16:00] VITALS: BP 115/60
[2021-04-12 20:00] VITALS: BP 145/61
[2021-04-12] MEDS: TRAMADOL HCL 50 MG TABLET PO PRN (22:18)
--- NOTE | 2021-04-12 22:18 | NUR ---
[facility]PS RN NOTE, PATIENT HAS A COMPLAINT OF LOWER BACK PAIN AT 3 OUT OF 10 ON THE PAIN SCALE AND IS REQUESTING ULTRAM AT THIS TIME. PATIENT VITAL SIGNS ARE STABLE. GAVE ULTRAM 50MG PO Q6HR PRN ORDERED. WILL REASSESS PAIN AND I WILL CONTINUE TO MONITOR THIS PATIENT WITH THE HELP OF STAFF.
[2021-04-13] MEDS: ZOLPIDEM TARTRATE 5 MG TABLET PO PRN ×2 (00:12→23:51)
--- NOTE | 2021-04-13 00:13 | NUR ---
[facility]PS RN NOTE, PATIENT HAS A COMPLAINT OF NOT BEING ABLE TO SLEEP AND IS REQUESTING AMBIEN AT THIS TIME. PATIENT VITAL SIGNS ARE STABLE. GAVE AMBIEN 5MG PO HS PRN ORDERED. WILL REASSESS FOR INSOMNIA AND I WILL CONTINUE TO MONITOR THIS PATIENT WITH THE HELP OF STAFF.
[2021-04-13 08:00] VITALS: BP 148/68
[2021-04-13] MEDS: PANTOPRAZOLE 40 MG TABLET.DR PO SCH (08:21)
[2021-04-13] MEDS: DULOXETINE HCL 30 MG CAPSULE.DR PO SCH (08:22)
[2021-04-13] MEDS: FOLIC ACID 1 MG TABLET PO SCH (08:22)
[2021-04-13] MEDS: AMLODIPINE BESYLATE 10 MG TABLET PO SCH (08:22)
[2021-04-13] MEDS: GABAPENTIN 100 MG CAPSULE PO SCH ×3 (08:22→16:19)
[2021-04-13] MEDS: MONTELUKAST SODIUM (10MG) 10 MG TABLET PO SCH (08:22)
[2021-04-13] MEDS: ENSURE ENLIVE 237 ML LIQUID (VANILLA) PO SCH ×3 (08:23→16:19)
[2021-04-13 16:00] VITALS: BP 131/59
[2021-04-13] MEDS ORDERED: EPOETIN ALFA-EPBX 10,000 UNIT/ML VIAL SQ SCH ×2 (17:00)
[2021-04-13 21:08] VITALS: BP 141/60
--- NOTE | 2021-04-13 23:53 | NUR ---
[facility] RN NOTES: PATIENT C/O INSOMNIA. AMBIEN 5MG 1 TAB GIVEN PO AT 2351. WILL CONTINUE TO MONITOR.
[2021-04-13] MEDS: ACETAMINOPHEN 325 MG TABLET PO PRN (23:54)
--- NOTE | 2021-04-13 23:57 | NUR ---
[facility] RN NOTES: PATIENT C/O ABDOMINAL PAIN. TYLENOL 650MG GIVEN PO AT 2354. WILL CONTINUE TO MONITOR.
--- NOTE | 2021-04-14 06:09 | NUR ---
[facility] RN NOTES: PATIENT REFUSED WEEKLY SKIN ASSESSMENT.
[2021-04-14 08:00] VITALS: BP 152/67
[2021-04-14] MEDS: PANTOPRAZOLE 40 MG TABLET.DR PO SCH (08:04)
[2021-04-14] MEDS: MONTELUKAST SODIUM (10MG) 10 MG TABLET PO SCH (08:27)
[2021-04-14] MEDS: DULOXETINE HCL 30 MG CAPSULE.DR PO SCH (08:27)
[2021-04-14] MEDS: FOLIC ACID 1 MG TABLET PO SCH (08:27)
[2021-04-14] MEDS: ENSURE ENLIVE 237 ML LIQUID (VANILLA) PO SCH ×3 (08:28→16:05)
[2021-04-14] MEDS: AMLODIPINE BESYLATE 10 MG TABLET PO SCH (08:28)
[2021-04-14] MEDS: GABAPENTIN 100 MG CAPSULE PO SCH ×3 (08:29→16:08)
[2021-04-14 09:42] LABS: BASOPHILS % (AUTO) 0.1 % (0.0-2.0); EOSINOPHILS % (AUTO) 3.4 % (0.0-6.0); HEMATOCRIT 22 % (33-45); HEMOGLOBIN 7.3 g/dL (11.5-14.8); LYMPHOCYTES # (AUTO) 0.6 K/uL (0.8-4.8); LYMPHOCYTES % (AUTO) 12.1 % (20.0-44.0); MEAN CORPUSCULAR HGB CONC 34 g/dl (31.0-36.0); MEAN CORPUSCULAR VOLUME 91 fL (82-100); MONOCYTES # (AUTO) 0.6 K/uL (0.1-1.30); MONOCYTES % (AUTO) 12.8 % (2.0-12.0); NEUTROPHILS # (AUTO) 3.5 K/uL (1.8-8.9); NEUTROPHILS % (AUTO) 71.6 % (43.0-81.0); PLATELET COUNT (AUTO) 135 K/uL (150-450); WHITE BLOOD COUNT (AUTO) 4.9 K/uL (4.3-11.0)
--- NOTE | 2021-04-14 12:00 | NUR ---
MD AWARE OF LATEST LABS. VSS. NO SIGNS OF ACUTE DISTRESS NOTED.
[2021-04-14 16:00] VITALS: BP 149/67
[2021-04-14 20:00] VITALS: BP 139/54
[2021-04-14] MEDS: ZOLPIDEM TARTRATE 5 MG TABLET PO PRN (22:03)
--- NOTE | 2021-04-14 22:03 | NUR ---
[facility] RN NOTES: PATIENT C/O INSOMNIA. AMBIEN 5MG 1 TAB GIVEN PO AT 2203. WILL CONTINUE TO MONITOR.
[2021-04-14] MEDS: TRAMADOL HCL 50 MG TABLET PO PRN (23:17)
--- NOTE | 2021-04-14 23:19 | NUR ---
[facility] RN NOTES: TRAMADOL 50MG 1TAB GIVEN PO FOR GENERALIZED BODY PAIN AT 2317. WILL CONTINUE TO MONITOR.
--- NOTE | 2021-04-15 07:57 | NUR ---
SW Discharge Note: Patient will be discharged back home located at [address] [place] [address]; ([phone]). Patients daughter Janny ([phone]) will greens picker pt between 10AM-12PM. Daughters Phyllis ([phone]) and Janny ([phone]) are aware of discharge. Patient is alert and oriented x3. Patient denies suicidal or homicidal ideation. Patient denies visual and auditory hallucinations. Patient will follow up with (Trimmer And Borer Machine Operator) Dr. Duane Valenzuela located at [address] [place] [address]; ([phone]) on April 17 at 9:45AM who will monitor and provide pts psychotropic medications. Patient was given psychiatry resources: [facility]; ([phone]), [facility] ([phone]), [facility] ([phone]). Patient presents with euthymic mood and congruent affect.
[2021-04-15] MEDS: PANTOPRAZOLE 40 MG TABLET.DR PO SCH (07:58)
[2021-04-15 08:00] VITALS: BP 148/58
[2021-04-15] MEDS: GABAPENTIN 100 MG CAPSULE PO SCH (08:00)
[2021-04-15] MEDS: MONTELUKAST SODIUM (10MG) 10 MG TABLET PO SCH (08:00)
[2021-04-15 08:01] VITALS: BP 148/58
[2021-04-15] MEDS: AMLODIPINE BESYLATE 10 MG TABLET PO SCH (08:01)
[2021-04-15] MEDS: DULOXETINE HCL 30 MG CAPSULE.DR PO SCH (08:01)
[2021-04-15] MEDS: FOLIC ACID 1 MG TABLET PO SCH (08:01)
[2021-04-15] MEDS: ENSURE ENLIVE 237 ML LIQUID (VANILLA) PO SCH (08:02)
--- NOTE | 2021-04-15 10:21 | NUR ---
Patient discharged home located at [address] [place] [address]; ([phone]). Patient left unit via w/c @ 1020am. accompanied by [facility] staff. Daughter Janny ([phone]) picked up pt from unit . Daughters Phyllis ([phone]) and Janny ([phone]) are aware of discharge. Patient is alert and oriented x3. Patient denies suicidal or homicidal ideation. Patient denies visual and auditory hallucinations. No signs of acute distress noted at this time. VSS. Exit care documents along with education, and md and psychiatrist's prescriptions given in discharge packet. All valuables and belongings signed and returned. All Pt's home meds signed and returned. Pt refused pictures.Patient will follow up with (Control Room Helper) Dr. Duane Valenzuela located at [address] [place] [address]; ([phone]) on April 17 at 9:45AM who will monitor and provide pts psychotropic medications. Patient was given psychiatry resources: [facility]; ([phone]), [facility] ([phone]), [facility] ([phone]).
== END 2021-04-15 10:20 | disposition home or self-care (01) | DRG 885 ==
LOC: GPS 20:29
PROVIDERS: ADMIT Psychiatry & Neurology Psychiatry; ATTEND Nurse Practitioner Acute Care
DX: F32.2 Major depressive disorder, single episode, severe without psychotic features (principal); N18.4 Chronic kidney disease, stage 4 (severe); N17.0 Acute kidney failure with tubular necrosis; M84.48XA Pathological fracture, other site, initial encounter for fracture; I12.9 Hypertensive chronic kidney disease with stage 1 through stage 4 chronic kidney disease, or unspecified chronic kidney disease; D63.1 Anemia in chronic kidney disease; E86.0 Dehydration; E83.89 Other disorders of mineral metabolism
CPT/HCPCS: 36415; 76770-TC; 80048-TC; 80053-TC; 80061-TC; 81001; 82570-TC; 82962-TC; 83735-TC; 84100-TC; 84155-TC; 84300-TC; 85025-TC; J0885